=== PATIENT | male | born 1960 | race Caucasian/White ===

== ENCOUNTER → 2023-08-23 15:44 | Outpatient (REF) | payer MEDICARE, OTHER, SELFPAY | LOC: HWRAD 15:44 | PROVIDERS: ATTENDING PHYSICIAN Specialist; REFERRING PHYSICIAN Specialist | DX: N20.1 Calculus of ureter (principal); N39.0 Urinary tract infection, site not specified | CPT/HCPCS: 74176 ==

== ENCOUNTER → 2024-06-08 10:34 | Outpatient (REF) | payer MEDICARE, OTHER, SELFPAY | LOC: HWRAD 10:34 | PROVIDERS: ATTENDING PHYSICIAN Nurse Practitioner Family | DX: M79.605 Pain in left leg (principal) | CPT/HCPCS: 73552 ==

== ENCOUNTER → 2024-06-25 09:42 | Outpatient (REF) | payer MEDICARE, OTHER, SELFPAY | LOC: MRI 3T 09:42 | PROVIDERS: ATTENDING PHYSICIAN Nurse Practitioner Family | DX: M79.605 Pain in left leg (principal); M25.462 Effusion, left knee | CPT/HCPCS: 73718; 73721 ==

== ENCOUNTER → 2024-06-27 14:35 | Outpatient (REF) | payer MEDICARE, OTHER, SELFPAY | LOC: HWRAD 14:35 | PROVIDERS: ATTENDING PHYSICIAN Family Medicine | DX: M76.32 Iliotibial band syndrome, left leg (principal) | CPT/HCPCS: 73502 ==

== ENCOUNTER → 2024-07-14 10:23 | Outpatient (REF) | payer MEDICARE, OTHER, SELFPAY | LOC: MRI 3T 10:23 | PROVIDERS: ATTENDING PHYSICIAN Family Medicine | DX: M54.32 Sciatica, left side (principal) | CPT/HCPCS: 72148 ==